=== PATIENT | female | born 1975 | race Caucasian/White ===

== ENCOUNTER 2017-12-19 09:16 | Emergency (ER) | payer BC, SELFPAY ==
[2017-12-19 09:30] VITALS: BP 136/68; PULSE 66; RESP 20; TEMP 37.1; O2SAT 95; BMI 43.0
--- NOTE | 2017-12-19 09:50 | PC.NURSE ---
c/o severe LLQ abdominal pain. Mild x last 2 weeks and suddenly worsened yesterday. No fever. Minimal diarrhea yesterday. No vomiting. No UTI symptoms. Hx of diverticulitis and feels that could be the cause. Worse with sitting. Very uncomfortable, guarding LLQ and standing leaned against exam table. Discussed symptoms, appearance and ORC Guidelines. Pt agrees that she needs to be in ER and knew I needed ER but due to having [employer], she was afraid they would deny her visit if she wasnt seen here first. Aware with the acute onset of worsening symptoms, she needs further abdominal pain evaluation in ER. Pt agrees. Report called to February. Room 10 available.
[2017-12-19 10:05] VITALS: BP 133/57; PULSE 63; RESP 18; TEMP 37; O2SAT 93; BMI 43.0
--- NOTE | 2017-12-19 10:37 | HMH.EDABDPAI ---
ED Disposition Clinical Impression: Diverticulitis Disposition: Home, Self-Care Condition on Discharge: Fair Instructions: Acute Abdominal Pain Additional Instructions: Use medicines as directed and followup with PCP for any worsening symptoms Prescriptions: Ciprofloxacin HCl [Cipro 500mg Tab] 500 mg PO BID 10 Days #20 tab metroNIDAZOLE [Flagyl] 500 mg PO BID 10 Days #20 tab Time of Disposition: 12:46 - Critical Care Critical Care Time: No Attestation: On 12/19/17, the high probability of a clinically significant, sudden or life threatening deterioration of the following system(s) required my full and direct attention, intervention and personal management. The time I documented below is in addition to time spent performing reported procedures but includes the following listed in this critical care notation. Medical Decision Making - Medical Records Medical records reviewed: Yes: I reviewed the patient's medical records. Vital Signs: 12/19/17 09:30 12/19/17 10:05 12/19/17 11:47 Temperature 98.7 F 98.6 F Temperature Source Temporal Artery Scan Oral Pulse Rate [Right Radial] 66 63 84 Respiratory Rate 20 18 16 Blood Pressure [Right Arm] 136/68 133/57 141/75 Blood Pressure Mean [Right Arm] 90 82 97 Blood Pressure Source [Right Arm] Automatic Cuff Automatic Cuff Automatic Cuff Blood Pressure Position [Right Arm] Sitting Sitting 02 Sat by Pulse Oximetry 95 93 L 98 Oxygen Delivery Method Room Air Room Air Room Air - Lab Data Lab results reviewed: Yes: I reviewed the patient's lab results. Lab Results 12/19/17 10:35: WBC 7.4, RBC 5.13, Hgb 15.1, Hct 46.2, MCV 90.0, MCH 29.5, MCHC 32.8, RDW 12.8, Plt Count 230, MPV 8.1, Neut % (Auto) 70.9, Lymph % (Auto) 20.5, Rabun % (Auto) 6.6, Eos % (Auto) 1.3, Baso % (Auto) 0.7, Neut # (Auto) 5.3, Lymph # (Auto) 1.5, Rabun # (Auto) 0.5, Eos # (Auto) 0.1, Baso # (Auto) 0.1 12/19/17 10:35: Sodium 139, Potassium 4.0, Chloride 104, Carbon Dioxide 27, Anion Gap 12.0, BUN 10, Creatinine 1.03 H, Estimated Creat Clear 50, Estimated GFR 58 L, Est GFR ( Amer) 70, Glucose 101, Calcium 8.6, Total Bilirubin 0.5, AST 24, ALT 44, Alkaline Phosphatase 72, Total Protein 7.8, Albumin 3.8, Globulin 4.0 H, Albumin/Globulin Ratio 1.0 L, Amylase 54, Lipase 169 Result diagrams: 12/19/17 10:35 12/19/17 10:35 Orders (Tests/Meds): ED MEDICATIONS Discontinued Medications Generic Name Dose Route Start Last Admin Trade Name Freq PRN Reason Stop Dose Admin Iopamidol 75 ml 12/19/17 12:26 12/19/17 12:27 [id number]; 75ml Vial IV 12/19/17 12:27 75 ml ONCE ONE Administration Morphine Sulfate 2 mg 12/19/17 11:56 12/19/17 12:03 Morphine 4mg/Ml Syringe IV 12/19/17 11:57 2 mg ONCE ONE Administration Ondansetron HCl 4 mg 12/19/17 11:56 12/19/17 12:11 Zofran 4mg/2ml Vial IM 12/19/17 11:57 Not Given ONCE ONE Ondansetron HCl 4 mg 12/19/17 11:57 12/19/17 12:03 Zofran 4mg/2ml Vial IV 12/19/17 11:58 4 mg ONCE ONE Administration Sodium Chloride 10 ml 12/19/17 12:26 12/19/17 12:27 Rad-Saline Flush 10ml Syringe IV 12/19/17 12:27 10 ml ONCE ONE Administration ORDERS Category Date Time Status CT abdomen pelvis w con Stat Cat Scan 12/19/17 11:49 Taken UA [Urinalysis and Microscopic] Stat Lab 12/19/17 10:26 Ordered - CT Data CT Scan: Abdomen, Pelvis Time Received: 12:[address] Reviewed: Yes: I have reviewed the patient's CT results, I have viewed the radiologist's interpretation Findings Narrative: Mild diverticulitis in sigmoid colon...no abscess and no perforations seen - Graham Inquiry Pt receiving controlled substance: No Graham was queried for this patient: No Abdominal Pain HPI - General Chief Complaint: Abdominal Pain Stated Complaint: side pain bloating thirsty Time Seen by Provider: 12/19/17 10:48 Mode of Arrival: Ambulatory Source of Information: Patient Limitations: No Limitations Description of
[2017-12-19 10:46] LABS: Basophils # 0.1 K/mm3 (0-0.2); Basophils % 0.7 % (0.1-2.0); Eosinophils # 0.1 K/mm3 (0.0-0.4); Eosinophils % 1.3 % (0.1-12.0); Hematocrit 46.2 % (37.0-47.0); Hemoglobin 15.1 g/dL (12.2-16.2); Lymphocytes # 1.5 K/mm3 (0.7-4.5); Lymphocytes % 20.5 K/mm3 (10-50); Mean Corpuscular HGB Conc 32.8 g/dL (31.8-35.4); Mean Corpuscular Hemoglobin 29.5 pg (27.0-31.2); Mean Platelet Volume 8.1 fl (7.4-10.4); Monocytes # 0.5 K/mm3 (0.1-1.0); Monocytes % 6.6 % (1.7-9.3); Neutrophils # 5.3 K/mm3 (1.8-7.8); Neutrophils % 70.9 % (37.0-80.0); Platelet Count 230 K/mm3 (142-424); Red Blood Count 5.13 M/mm3 (4.20-5.40); Red Cell Distribution Width 12.8 % (11.5-17.5); White Blood Count 7.4 K/mm3 (4.8-10.8)
[2017-12-19 10:57] LABS: Alanine Aminotransferase 44 U/L (12-78); Albumin Level 3.8 gm/dL (3.4-5.0); Alkaline Phosphatase 72 U/L (46-116); Amylase 54 U/L (25-125); Aspartate Amino Transferase 24 U/L (15-37); Bilirubin,Total 0.5 mg/dL (0.2-1.0); Blood Urea Nitrogen 10 mg/dL (7-18); Calcium 8.6 mg/dL (8.5-10.1); Carbon Dioxide 27 mmol/L (21.0-32.0); Chloride 104 mmol/L (98-107); Creatinine Clearance Estimated 50 mL/min (0-300); Creatinine,Serum 1.03 mg/dL (0.55-1.02); Estimated Glomerular Filt Rate 58 ml/min (>60); GFR (African American) 70 ML/MIN (>60); Glucose 101 mg/dL (74-106); Lipase 169 u/L (73-393); Sodium 139 mmol/L (136-145); Total Protein,Serum 7.8 gm/dL (6.4-8.2)
[2017-12-19 11:47] VITALS: BP 141/75; PULSE 84; RESP 16; O2SAT 98
--- NOTE | 2017-12-19 11:49 | CT_ITS ---
CT abdomen pelvis w con COMPARISON: CT scan abdomen pelvis 03/29/2016 HISTORY: Left lower quadrant pain, history of previous diverticulitis TECHNIQUE: Multiple axial scans obtained from hemidiaphragms the pelvic floor and were performed with IV contrast only. Sagittal coronal reformats were evaluated as well. FINDINGS: The lower lung quick are clear. There is diffuse fatty infiltration of the liver. There is been previous lap banding procedure of the stomach. Spleen and pancreas appear normal, there has been a previous cholecystectomy. The adrenal glands are normal. The kidneys are normal size and show symmetrical function both appearing normal. Small bowel is unremarkable. There is been previous appendectomy. There is moderate stool in ascending colon. There is diffuse Sharon date Roxana the lower descending and sigmoid colon. There is mild pericolonic fat stranding around the upper sigmoid colon at the site of previous episode of diverticulitis in March 2016. The uterus is normal size and in the midline. Urinary bladder appears normal. There is no free fluid in the pelvis appear there is a tiny umbilical hernia containing fat only. IMPRESSION: Mild diffuse diverticulosis of the lower descending and sigmoid colon with mild or early diverticulitis involving the upper sigmoid colon not as pronounced as the previous episode.
[2017-12-19 13:36] VITALS: BP 147/70; PULSE 87; RESP 16; TEMP 36.9; O2SAT 98
== END 2017-12-19 13:53 | disposition home or self-care (01) ==
LOC: UTC 09:22 → ER 09:54
PROVIDERS: Emergency Provider General Practice; Family Provider Family Medicine
DX: K57.92 Diverticulitis of intestine, part unspecified, without perforation or abscess without bleeding (principal); K57.32 Diverticulitis of large intestine without perforation or abscess without bleeding
CPT/HCPCS: 74177; 80053; 82150; 83690; 85025; 96374; 96375; 99284; J2405; Q9967

== ENCOUNTER → 2018-02-17 11:08 | Outpatient (CLI) | payer BC, SELFPAY ==
--- NOTE | 2018-02-17 11:14 | XR_ITS ---
XR foot LT min 3V COMPARISON: Left foot 12/04/2016 HISTORY: Left foot TECHNIQUE: AP lateral and oblique views FINDINGS: The tarsal bones metatarsals and phalanges appear intact with no evidence of recent or old fracture. The plantar arch is normal. There is a small spur of the calcaneus at the insertion of plantar tendon. The soft tissues are grossly normal. IMPRESSION: Tiny calcaneal spur otherwise negative left foot
== END ==
PROVIDERS: PCP Family Medicine; Visit Provider Family Medicine
DX: M79.672 Pain in left foot (principal)
CPT/HCPCS: 73630

== ENCOUNTER → 2018-05-10 14:40 | Outpatient (POV) | payer BC, SELFPAY | PROVIDERS: Family Provider Family Medicine; PCP Family Medicine; Visit Provider Nurse Practitioner Acute Care | DX: Z00.00 Encounter for general adult medical examination without abnormal findings (principal) ==

== ENCOUNTER → 2018-07-15 14:18 | Outpatient (CLI) | payer BC, SELFPAY ==
--- NOTE | 2018-07-15 14:23 | XR_ITS ---
XR chest 2V HISTORY: ITS.REASON: COUGH ORDERING PHYSICIAN: Giorgio Torres MD PATIENT AGE: 43 years COMPARISON: None FINDINGS: The cardiomediastinal silhouette and pulmonary vascularity are within normal limits. The lungs are clear without infiltrates, suspicious nodules, or pleural effusions. No acute bony abnormalities. There is a gastric lap band in position. A calcified granuloma is present overlying the anterior clear space inferiorly. IMPRESSION: Negative chest, no acute finding
== END ==
PROVIDERS: PCP Family Medicine; Visit Provider Family Medicine
DX: R05 Cough (principal)
CPT/HCPCS: 71046

== ENCOUNTER → 2018-07-23 10:43 | Outpatient (CLI) | payer BC, SELFPAY ==
--- NOTE | 2018-07-23 10:50 | US_ITS ---
US thyroid HISTORY: ITS.REASON: THYROMEGLY ORDERING PHYSICIAN: Giorgio Torres MD PATIENT AGE: 43 years Comparison: None FINDINGS: The right lobe is 4.3 x 1.6 x 1.5 cm with homogeneous echogenicity. No nodules. The left lobe is 4.4 x 1.3 x 1.4 cm. A 6 mm slightly hypoechoic well-circumscribed nodules present along the lower pole near the isthmus. The isthmus is slightly thickened at 5 mm. IMPRESSION: 1. Mildly enlarged thyroid gland. 2. 6 mm hypoechoic nodule in the lower pole at the isthmus the left which has a low level of suspicion for malignancy. Consider 6 month follow-up to confirm stability
== END ==
PROVIDERS: PCP Family Medicine; Visit Provider Family Medicine
DX: E01.0 Iodine-deficiency related diffuse (endemic) goiter (principal)
CPT/HCPCS: 76536

== ENCOUNTER → 2018-08-31 10:47 | Outpatient (POV) | payer BC, SELFPAY | PROVIDERS: Visit Provider Otolaryngology | DX: Z00.00 Encounter for general adult medical examination without abnormal findings (principal) ==

== ENCOUNTER → 2018-09-07 10:24 | Outpatient (POV) | payer BC, SELFPAY | PROVIDERS: Family Provider Family Medicine; Visit Provider Dermatology | DX: Z00.00 Encounter for general adult medical examination without abnormal findings (principal) ==

== ENCOUNTER → 2018-09-15 15:12 | Outpatient (CLI) | payer BC, SELFPAY ==
--- NOTE | 2018-09-15 15:16 | CT_ITS ---
CT sinus wo con CLINICAL INDICATION: ITS.REASON: BILAT-ABN TYMPANIC MEMBRANE,ABN AUDITORY PERCEPTION,ACUTE ORDERING PHYSICIAN: Minerva Queen MD PATIENT AGE: 43 years COMPARISON: None TECHNIQUE:Axial images obtained with sagittal and coronal reformats. All CT scans at the facility use one or more dose reduction, viz: automated exposure control, ma/kV adjustment per patient size (including targeted exams where dose is matched to indication, i.e. head), or iterative reconstruction technique. FINDINGS: The frontal sinuses are unremarkable. There is minor mucosal thickening of the right maxillary sinus inferiorly measuring up to 2 mm. There is mild mucosal thickening of the right ethmoids centrally and inferiorly. There is moderate mucosal thickening of the sphenoid sinus both right and left aspect measuring up to 8 mm in thickness. There is a question of a small air-fluid level in the right aspect of the sinus. No maxillary sinus air-fluid level. The mastoid sinuses are unremarkable. The middle ears do not appear opacified. The orbits and temporomandibular joints have an unremarkable appearance. There is mild rightward nasal septal deviation. The ostiomeatal complexes are patent. Scattered small lymph nodes present in the neck. IMPRESSION: 1. Mild paranasal sinus disease greatest in the sphenoid sinus region. 2. No mastoid effusion or middle ear opacification. 3. Right nasal septal deviation
== END ==
PROVIDERS: PCP Otolaryngology; Visit Provider Otolaryngology
DX: H73.93 Unspecified disorder of tympanic membrane, bilateral (principal); H93.293 Other abnormal auditory perceptions, bilateral; J01.01 Acute recurrent maxillary sinusitis
CPT/HCPCS: 70486

== ENCOUNTER → 2018-09-30 14:24 | Outpatient (CLI) | payer BC, SELFPAY ==
--- NOTE | 2018-09-30 14:28 | US_ITS ---
US transvaginal HISTORY: ITS.REASON: US T/V- Dyspareunia ORDERING PHYSICIAN: Fredrick Yip MD PATIENT AGE: 43 years Comparison: None FINDINGS: The uterus is prominent measuring 10.3 x 4.7 x 5.9 cm. Combined endometrial thickness is 6 mm. Nabothian cysts are noted. The right ovary is 3.4 x 3.3 cm. The left ovary is 3 x 2.6 cm. No dominant cyst. No cul-de-sac fluid. IMPRESSION: Bulky uterus otherwise negative pelvic ultrasound
== END ==
PROVIDERS: PCP Family Medicine; Visit Provider Nurse Practitioner Obstetrics & Gynecology
DX: N94.10 Unspecified dyspareunia (principal)
CPT/HCPCS: 76830

== ENCOUNTER → 2018-10-19 09:46 | Outpatient (POV) | payer BC, SELFPAY | PROVIDERS: Visit Provider Otolaryngology | DX: Z00.00 Encounter for general adult medical examination without abnormal findings (principal) ==

== ENCOUNTER → 2019-03-28 14:32 | Outpatient (CLI) | payer BC, SELFPAY ==
--- NOTE | 2019-03-28 14:42 | XR_ITS ---
XR foot LT min 3V HISTORY: ITS.REASON: LT FOOT PAIN ORDERING PHYSICIAN: Giorgio Torres MD PATIENT AGE: 43 years COMPARISON: None FINDINGS: No fracture or dislocation. No lytic or blastic change. There is normal mineralization.. The joint spaces are well-preserved. No significant degenerative/arthritic changes. No erosive changes evident. IMPRESSION: Negative, no acute finding
== END ==
PROVIDERS: PCP Family Medicine; Visit Provider Family Medicine
DX: M79.672 Pain in left foot (principal)
CPT/HCPCS: 73630

== ENCOUNTER → 2019-04-05 12:47 | Outpatient (CLI) | payer BC, SELFPAY ==
--- NOTE | 2019-04-05 12:49 | US_ITS ---
US extremity LT limited HISTORY: ITS.REASON: Foreign Body of left Foot ORDERING PHYSICIAN: Rashida Meraz DPM PATIENT AGE: 43 years COMPARISON: None FINDINGS: Ultrasound performed of the left heel region in the area of pain and swelling. No sonographically detected performed body apparent. Small amount fluid is present in the subcutaneous region. IMPRESSION: No foreign body detected by ultrasound
== END ==
PROVIDERS: PCP Family Medicine; Visit Provider Podiatrist
DX: M79.672 Pain in left foot (principal)
CPT/HCPCS: 76882

== ENCOUNTER → 2020-01-10 09:58 | Outpatient (POV) | payer BC, SELFPAY | PROVIDERS: PCP Dermatology; Visit Provider Dermatology | DX: Z00.00 Encounter for general adult medical examination without abnormal findings (principal) ==

== ENCOUNTER → 2020-03-01 09:59 | Outpatient (CLI) | payer BC, SELFPAY ==
--- NOTE | 2020-03-01 10:03 | XR_ITS ---
PROCEDURE: XR LUMBAR SPINE MIN 4V CLINICAL INDICATION: RT SCIATICA Low back pain COMPARISON: No exams were available for comparison FINDINGS: Normal alignment. No acute fracture or dislocation. The disc spaces are well preserved. Minimal endplate osteophytes are present. There is some sclerosis of the left SI joint. No lytic or blastic change IMPRESSION: Minimal degenerative changes with sclerosis of the left SI joint Dictated by: Aneesh Cadena MD 03/01/2020 12:24 Electronically signed by Aneesh Cadena MD in [place] 03/01/2020 12:24
== END ==
PROVIDERS: PCP Family Medicine; Visit Provider Family Medicine
DX: M54.31 Sciatica, right side (principal)
CPT/HCPCS: 72110

== ENCOUNTER → 2020-12-11 08:09 | Outpatient (CLI) | payer BC, SELFPAY ==
[2020-12-11 09:23] LABS: Hematocrit 41.9 % (37.0-47.0); Hemoglobin 13.7 g/dL (12.2-16.2); Mean Corpuscular HGB Conc 32.7 g/dL (31.8-35.4); Mean Corpuscular Hemoglobin 30.3 pg (27.0-31.2); Mean Corpuscular Volume 92.8 fl (81-99); Platelet Count 253 K/mm3 (142-424); Red Blood Count 4.52 M/mm3 (4.20-5.40); Red Cell Distribution Width 12.9 % (11.5-17.5); White Blood Count 5.6 K/mm3 (4.8-10.8)
[2020-12-11 09:26] LABS: Hemoglobin A1C 5.1 % (4.0-6.0)
[2020-12-11 09:51] LABS: Alanine Aminotransferase 17 U/L (12-78); Albumin Level 4.4 g/dl (3.5-5.0); Albumin/Globulin Ratio 1.6 (1.1-1.8); Alkaline Phosphatase 71 U/L (38-126); Anion Gap 13.2 mEq/L (5-15); Aspartate Amino Transferase 26 U/L (14-36); Bilirubin,Total 0.6 mg/dl (0.2-1.3); Blood Urea Nitrogen 16 mg/dl (7-17); Calcium 9.8 mg/dl (8.4-10.2); Carbon Dioxide 28 mmol/L (22.0-30.0); Chloride 100 mmol/L (98-107); Chol/HDL Ratio 4.3 (1-3.5); Cholesterol 187 mg/dl (140-200); Estimated Glomerular Filt Rate 67 ml/min (>60); GFR (African American) 81 ML/MIN (>60); Globulin 2.8 g/dL (1.3-3.2); Glucose 88 mg/dl (74-100); HDL Cholesterol 43 mg/dl (40-60); Iron 70 ug/dL (37-170); Magnesium 1.9 mg/dl (1.6-2.3); Phosphorous 4.3 mg/dl (2.5-4.5); Potassium 4.2 mmoL/L (3.5-5.1); Sodium 137 mmol/L (136-145); Total Protein,Serum 7.2 g/dl (6.3-8.2); Triglycerides 95 mg/dl (30-150); VLDL Cholesterol 19 mg/dL (0-40)
[2020-12-11 10:07] LABS: 25-OH Vitamin D, Total 84.7 ng/mL (30-100)
[2020-12-11 10:59] LABS: Folate 6.55 ng/mL
[2020-12-11 11:47] LABS: Thyroid Stimulating Hormone 2.71 uIU/mL (0.465-4.68)
[2020-12-11 11:51] LABS: Ferritin 24.8 ng/ml (6.24-137)
[2020-12-12 15:42] LABS: Prealbumin 20 mg/dL (12-34)
[2020-12-15 23:42] LABS: Vitamin A 32.8 ug/dL (20.1-62.0); Vitamin B1 84.8 nmol/L (66.5-200.0)
[2020-12-16 16:36] LABS: Vitamin E Alpha Tocopherol 10.7 mg/L (7.0-25.1)
[2020-12-16 22:01] LABS: Vitamin E Gamma Tocopherol 0.7 mg/L (0.5-5.5)
[2020-12-19 20:03] LABS: Methylmalonic Acid 257 nmol/L (0-378)
== END ==
PROVIDERS: Visit Provider Physician Assistant Medical
DX: E66.01 Morbid (severe) obesity due to excess calories (principal); Z98.890 Other specified postprocedural states
CPT/HCPCS: 36415; 80053; 80061; 82131; 82306; 82728; 82746; 83036; 83540; 83735; 83970; 84100; 84134; 84425; 84443; 84446; 84590; 85014; 85018; 85048; 85049

== ENCOUNTER → 2021-08-23 10:17 | Outpatient (CLI) | payer BC, SELFPAY ==
--- NOTE | 2021-08-23 10:21 | XR_ITS ---
PROCEDURE: XR HIP RT 2-3V W/PELVIS CLINICAL INDICATION: RT HIP PAIN COMPARISON: No exams were available for comparison FINDINGS: No fracture or dislocation is evident. There is minor asymmetrical joint space narrowing. There are no soft tissue calcifications. SI joints appear normal. IMPRESSION: Minor osteoarthritic change right hip Dictated by: Dr. Eleuterio Wilkinson MD 08/23/2021 10:30 Dr. Eleuterio Wilkinson MD in [facility] 08/23/2021 10:30
== END ==
PROVIDERS: PCP Family Medicine; Visit Provider Family Medicine
DX: M25.551 Pain in right hip (principal)
CPT/HCPCS: 73502

== ENCOUNTER → 2022-10-30 11:22 | Outpatient (CLI) | payer BC, SELFPAY ==
--- NOTE | 2022-10-30 11:26 | XR_ITS ---
FINAL REPORT CLINICAL HISTORY: LT WRIST PAIN FINDINGS: LEFT WRIST Three views demonstrate no acute fracture or dislocation. The visualized joint spaces are normally aligned. The joint spaces are intact. The soft tissues are unremarkable. IMPRESSION: No acute bony abnormality. Reviewed, Interpreted and Dictated by Ortega Parker III, MD Transcribed by Jacqueline Chirinos Authenticated and [facility]
== END ==
PROVIDERS: PCP Physician Assistant; Visit Provider Physician Assistant
DX: M25.532 Pain in left wrist (principal)
CPT/HCPCS: 73110

== ENCOUNTER → 2022-11-18 09:56 | Outpatient (CLI) | payer BC, SELFPAY ==
--- NOTE | 2022-11-18 10:01 | XR_ITS ---
FINAL REPORT TECHNIQUE: Two views CLINICAL HISTORY: SUBACUTE COUGH COMPARISON: July 15, 2018 FINDINGS: No acute pulmonary density is present. Mediastinal contour is normal. Heart size is stable. IMPRESSION: Stable chest exam without acute disease Reviewed, Interpreted and Dictated by Jyotsna Jeffries MD Transcribed by Jacqueline Chirinos Authenticated and [facility]
== END ==
PROVIDERS: PCP Family Medicine; Visit Provider Family Medicine
DX: R05.2 Subacute cough (principal)
CPT/HCPCS: 71046

== ENCOUNTER → 2022-12-05 11:47 | Outpatient (CLI) | payer BC, SELFPAY | PROVIDERS: PCP Family Medicine; Visit Provider Family Medicine | DX: G47.10 Hypersomnia, unspecified (principal); R06.83 Snoring; E66.01 Morbid (severe) obesity due to excess calories; G47.33 Obstructive sleep apnea (adult) (pediatric) | CPT/HCPCS: G0399 ==

== ENCOUNTER 2022-12-08 11:00 | Outpatient (RCR) | payer BC, SELFPAY | END 2022-12-08 11:05 | disposition home or self-care (01) | LOC: OT 11:00 | PROVIDERS: PCP Family Medicine; Visit Provider Family Medicine | DX: M25.532 Pain in left wrist (principal) | CPT/HCPCS: 97010; 97014; 97035; 97110; 97140; 97166; 97530; G0283 ==

== ENCOUNTER → 2023-10-12 08:23 | Outpatient (CLI) | payer BC, SELFPAY ==
--- NOTE | 2023-10-12 08:29 | MM_ITS ---
PROCEDURE INFORMATION: Exam: MG Bilateral Screening 3D Mammography Exam date and time: 10/12/2023 8:26 AM Age: 48 years old Clinical indication: Screening examination TECHNIQUE: Imaging protocol: Bilateral Screening tomosynthesis and 2D mammography including computer-aided detection (CAD) when performed. COMPARISON: No relevant prior studies available. Baseline FINDINGS: MAMMOGRAPHY: Breast composition: There are scattered areas of fibroglandular density. Mass: Partially circumscribed 0.6 cm mass in the posterior left upper inner quadrant Architectural distortion: None. Calcifications: No suspicious calcifications. Asymmetric density: None. Skin thickening: None. Axillary adenopathy: None. IMPRESSION: Patient to be recalled for spot compression views of the left breast in the CC and MLO projections, a full 90 degree lateral view, and left breast ultrasound for further evaluation of a left breast mass. ASSESSMENT: BI-RADS Category 0: Incomplete- Need Additional Imaging Evaluation and/or Prior Mammograms for Comparison
== END ==
PROVIDERS: PCP Family Medicine; Visit Provider Nurse Practitioner Obstetrics & Gynecology
DX: Z12.31 Encounter for screening mammogram for malignant neoplasm of breast (principal)
CPT/HCPCS: 77063; 77067

== ENCOUNTER → 2023-10-29 14:55 | Outpatient (CLI) | payer BC, SELFPAY ==
--- NOTE | 2023-10-29 14:59 | MM_ITS ---
PROCEDURE INFORMATION: Exam: US Left Breast, Complete MG Left Diagnostic Breast Tomosynthesis Exam date and time: 10/29/2023 2:45 PM Age: 48 years old Clinical indication: Patient recalled on the basis of a screening mammogram for further evaluation; Left breast; mass TECHNIQUE: Imaging protocol: Complete ultrasound of all four quadrants of the left breast and the retroareolar regions, including ultrasound of the axilla when performed. Left Diagnostic tomosynthesis and 2D mammography including computer-aided detection (CAD) when performed. Unilateral or bilateral exam. COMPARISON: MG MM DIG SCREENING MAMM BI W/CAD 10/12/2023 8:26 AM FINDINGS: MAMMOGRAPHY: Digital diagnostic spot compression views of the left medial breast demonstrates the suggestion of a persistent ovoid 0.7 cm mass best seen in the craniocaudal projection. ULTRASOUND: Sonographic images of the left breast including the retroareolar region, all 4 quadrants and the axilla demonstrates a hypoechoic ovoid mass in the 8 o'clock axis 9 cm from the nipple measuring 0.6 x 0.3 x 0.6 cm. The finding likely represents a debris-filled cyst and appears to most closely correspond to the mass on mammography. Additional hypoechoic well-circumscribed ovoid mass in the left 2 o'clock axis 10 cm from the is also likely benign in etiology and measures 1.0 x 0.6 x 0.9 cm in dimension. No architectural distortion or acoustical shadowing. No skin thickening or axillary adenopathy. IMPRESSION: Two probably benign hypoechoic masses in the left breast, the lower inner quadrant mass most closely corresponds to the slight persistent nodularity on mammography. The upper outer quadrant mass on sonography is not well seen on mammography. A six-month follow-up diagnostic left mammogram and targeted left breast ultrasound are recommended to ensure stability over time ASSESSMENT: BI-RADS Category 3: Probably benign
== END ==
PROVIDERS: PCP Family Medicine; Visit Provider Obstetrics & Gynecology
DX: R92.8 Other abnormal and inconclusive findings on diagnostic imaging of breast (principal)
CPT/HCPCS: 76641; 77061; 77065; G0279

== ENCOUNTER 2024-01-01 10:38 | Outpatient (CLI) | payer BC, SELFPAY ==
[2024-01-01 10:43] LABS: Coronavirus 19, PCR Not Detected (NotDetected); Influenza A, PCR Not Detected (NotDetected); Influenza B, PCR Not Detected (NotDetected)
== END 2024-01-01 23:59 ==
LOC: LAB 10:39
PROVIDERS: PCP Family Medicine; Visit Provider Physician Assistant
DX: J06.9 Acute upper respiratory infection, unspecified (principal)
CPT/HCPCS: 87636

== ENCOUNTER 2024-03-17 11:18 | Outpatient (CLI) | payer BC, SELFPAY ==
--- NOTE | 2024-03-17 | XR_ITS ---
FINAL REPORT CLINICAL HISTORY: LT WRIST PAIN fall last year FINDINGS: LEFT WRIST Three views show no evidence of an acute, displaced fracture or dislocation of the visualized bony architecture. The joint spaces appear normal. IMPRESSION: Unremarkable exam. Reviewed, Interpreted and Dictated by Jyotsna Jeffries MD Transcribed by Lily Chaudhary Authenticated and [facility]
== END 2024-03-17 23:59 | disposition home or self-care (01) ==
LOC: RAD 11:19
PROVIDERS: PCP Family Medicine; Visit Provider Family Medicine
DX: M25.532 Pain in left wrist (principal)
CPT/HCPCS: 73110

== ENCOUNTER 2024-05-17 13:51 | Outpatient (CLI) | payer BC, SELFPAY ==
--- NOTE | 2024-05-17 13:52 | MM_ITS ---
PROCEDURE INFORMATION: Exam: US Left Breast, Complete MG Left Diagnostic Breast Tomosynthesis Exam date and time: 05/17/2024 2:18 PM Age: 48 years old Clinical indication: Short-term radiographic followup; Left breast: masses TECHNIQUE: Imaging protocol: Complete ultrasound of all four quadrants of the left breast and the retroareolar regions, including ultrasound of the axilla when performed. Left Diagnostic tomosynthesis and 2D mammography including computer-aided detection (CAD) when performed. Unilateral or bilateral exam. COMPARISON: US BREAST LT COMPLETE 10/29/2023 3:05 PM FINDINGS: MAMMOGRAPHY: Breast composition: There are scattered areas of fibroglandular density. Breast mammogram findings: There is no stellate mass, architectural distortion or suspicious microcalcifications to suggest malignancy. Stable probably benign 0.7 cm mass middle third of the left medial breast. No skin thickening or axillary adenopathy. ULTRASOUND: Breast ultrasound findings: Sonographic images of the left breast including the retroareolar region, all 4 quadrants and the axilla demonstrates a stable hypoechoic ovoid mass in the 2 o'clock axis 10 cm from the nipple measuring 1.0 x 0.5 x 0.9 cm. Stable ovoid hypoechoic mass in the 8 o'clock axis 6 cm from the nipple measuring 0.7 x 0.3 x 0.6 cm. New similar-appearing hypoechoic ovoid well-circumscribed mass in the left 9 o'clock retroareolar region measuring 0.6 x 0.7 x 0.3 cm. No architectural distortion or acoustical shadowing. No skin thickening or axillary adenopathy. IMPRESSION: 1. Stable sonographically detected hypoechoic masses in the 2 and 8 o'clock axes compared to prior sonogram dated 10/29/2023. New probably benign similar appearing mass in the left 9 o'clock retroareolar region also only well seen on sonography. 2. Stable probably benign subcentimeter mass detected mammographically in the middle third of the left medial breast possibly correlating with the 8 o'clock axis mass on sonography. This is stable compared to prior mammogram dated 10/29/2023 A six-month follow-up diagnostic bilateral mammogram and targeted left breast ultrasound are recommended to ensure ongoing stability ASSESSMENT: BI-RADS Category 3: Probably benign.
== END 2024-05-17 23:59 | disposition home or self-care (01) ==
LOC: RAD 13:52
PROVIDERS: PCP Family Medicine; Visit Provider Obstetrics & Gynecology
DX: R92.8 Other abnormal and inconclusive findings on diagnostic imaging of breast (principal)
CPT/HCPCS: 76641; 77061; 77065; G0279

== ENCOUNTER 2024-11-18 12:38 | Outpatient (CLI) | payer BC, SELFPAY ==
--- NOTE | 2024-11-18 12:38 | MM_ITS ---
PROCEDURE INFORMATION: Exam: US Left Breast, Complete MG Bilateral Diagnostic Breast Tomosynthesis Exam date and time: 11/18/2024 1:01 PM Age: 49 years old Clinical indication: Six-month follow-up for probably benign mammographic mass mass in the left upper inner quadrant, initiated 10/12/2023 and probably benign sonographic masses on the left at 2 and 11 o'clock initiated 10/29/2023 - as well as on the left at 9 o'clock sonographically initiated 05/17/2024. TECHNIQUE: Imaging protocol: Complete ultrasound of all four quadrants of the left breast and the retroareolar regions, including ultrasound of the axilla when performed. Bilateral Diagnostic tomosynthesis and 2D mammography including computer-aided detection (CAD) when performed. Unilateral or bilateral exam. Spot compression and on the left. COMPARISON: US BREAST LT COMPLETE 05/17/2024 2:18 PM US BREAST LT COMPLETE 05/17/2024 2:18 PM MG MM DIG SCREENING MAMM BI W/CAD 10/12/2023 8:26 AM MG MM DIG MAMM DX UNILAT LT CAD 10/29/2023 2:45 PM MG MM DIG MAMM DX UNILAT LT CAD 05/17/2024 2:00 PM FINDINGS: MAMMOGRAPHY: Breast mammogram findings: Breast composition: There are scattered areas of fibroglandular density. Mass: Stable oval subcentimeter masses in the left upper outer quadrant posteriorly and left upper inner quadrant posteriorly, CC image [id number] frame 25 and MLO image [id number] for frame 21, and CC image [id number] frame 17 and MLO image [id number] frame 21 Architectural distortion: None. Calcifications: No suspicious calcifications. Asymmetric density: None. Skin thickening: None. Axillary adenopathy: None. ULTRASOUND: Breast ultrasound findings: Left sonography, all 4 quadrants, retroareolar and axilla. At 2 o'clock 10 cm from the nipple, oval, gently lobulated, hypoechoic avascular mass measuring 0.8 x 0.9 x 0.6 cm which measure 1.0 x 0.6 x 0.9 cm on 10/29/2023. At 8 o'clock 6 cm from the nipple, oval hypoechoic avascular mass measuring 0.6 x 0.3 x 0.6 cm which measured 0.6 x 0.3 x 0.6 cm on 10/29/2023. Minimally prominent retroareolar ducts with no related debris, with no finding demonstrated at 9 o'clock retroareolar.. Sonographically unremarkable axillary lymph node. IMPRESSION: Stable probably benign left mammographic and sonographic masses since September and October 2023, continued six-month follow-up left diagnostic mammography unless sonography unless otherwise clinically indicated. ASSESSMENT: BI-RADS Category 3: Probably benign.
== END 2024-11-18 23:59 | disposition home or self-care (01) ==
LOC: RAD 12:38
PROVIDERS: PCP Family Medicine; Visit Provider Obstetrics & Gynecology
DX: R92.8 Other abnormal and inconclusive findings on diagnostic imaging of breast (principal); N63.22 Unspecified lump in the left breast, upper inner quadrant
CPT/HCPCS: 76641; 77062; 77066; G0279

== ENCOUNTER 2025-06-06 10:09 | Outpatient (CLI) | payer BC, SELFPAY ==
--- OUTSIDE RECORDS SUMMARY | 2025-06-06 10:12 | XMS_ITS | Clinical Summary ---
Author Organization Healthcare Address [address] [place] [address] Care Team Providers Care Insurance Follow Up Representative Name Role Phone Giorgio Torres MD Primary Care Provider [phone] Allergies No known active allergies Medications celecoxib (CeleBREX) 100 MG capsule Take 1 capsule (100 mg) by mouth 1 (one) time each day. 2 Active Maximum D3 325 MCG (42565 UT) capsule 3 Active fluticasone (Flonase) 50 MCG/ACT nasal spray USE 1 SPRAY(S) IN EACH NOSTRIL ONCE DAILY 3 Active hydrOXYzine HCl (Atarax) 25 MG tablet Take 1 tablet (25 mg) by mouth 3 (three) times a day if needed. 3 Active montelukast (Singulair) 10 MG tablet Take 1 tablet (10 mg) by mouth 1 (one) time each day. 3 Active QUEtiapine (SEROquel) 100 MG tablet 3 Active Wegovy 2.4 MG/0.75ML solution auto-injector INJECT 3/4 (THREE-FOURTHS ) ML SUBCUTANEOUSLY ONCE A WEEK 3 Active sertraline (Zoloft) 100 MG tablet TAKE 2 TABLETS BY MOUTH ONCE DAILY FOR 90 DAYS 3 Active Active Problems No known active problems Family History Medical History Relation Name Comments Diabetes Father Heart disease Father Diabetes Mother Heart disease Mother Relation Name Status Comments Father Alive Mother Alive Social History Tobacco Use Types Packs/Day Years Used Date Smoking Tobacco: Never Passive Smoke Exposure: Never Smokeless Tobacco: Never Alcohol Use Standard Drinks/Week Comments Never 0 (1 standard drink = 0.6 oz pur e alcohol) Comments Unknown Sex and Gender Information Value Date Recorded Sex Assigned at Not on file Legal Sex Female 9:17 AM EDT Gender Identity Not on file Sexual Orientation Not on file Last Filed Vital Signs Vital Sign Reading Time Taken Comments Blood Pressure 119/79 06/05/2023 1:55 PM EDT Pulse 78 06/05/2023 1:55 PM EDT Temperature 35.6 C (96 F) 06/05/2023 1:55 PM EDT Respiratory Rate - - Oxygen Saturation 97% 06/05/2023 1:55 PM EDT Inhaled Oxygen Concentration - - Weight 87 kg (191 lb 12.8 oz) 06/05/2023 1:55 PM EDT Height 152.4 cm (5') 06/05/2023 1:55 PM EDT Body Mass Index 37.46 06/05/2023 1:55 PM EDT Plan of Treatment Health Maintenance Due Date Last Done Comments [facility]-Depression Screening 1973 [facility]-Infant/Child/Adol SDOH Screenings 1973 [facility]- SDOH Screenings 1991 [facility]-Adult SDOH Screenings 1991 [facility]-DTaP,Tdap,and Td Vaccines (1 - Tdap) 1992 [facility]-Hepatitis B Vaccines (1 of 3 - 19+ 3-dose series) 1992 [facility]-Pap Smear 1994 [facility]-Cervical Cancer Screening 2003 [facility]-HPV/Cotest 2003 CT Colonography 2018 Colonoscopy 2018 FIT-DNA 2018 FIT 2018 FOBT 2018 Sigmoidoscopy 2018 [facility]-Colorectal Cancer Screening 2018 [facility]-Pneumococcal Vaccine: 50+ Years (1 of 1 - PCV) 2023 [facility]-Zoster Vaccines (1 of 2) 2023 [id number] Vaccine (2 - season) 2024 02/20/2021 [facility]-Influenza Vaccine (#1) 07/17/202510/01, 10/29/2021, 09/19/2019, Additional history exists HPV Vaccines Aged Out No longer eligi ble based on patient's age to complete this topic [facility]-HIB Vaccines Aged Out No longer e ligible based on patient's age to complete this topic [facility]-Hepatitis A Vaccines Aged Out No longer eligible based on patient's age to complete this topic [facility]-IPV Vaccines Aged Out No longer e ligible based on patient's age to complete this topic [facility]-Rotavirus Vaccines Aged Out No lo nger eligible based on patient's age to complete this topic Insurance ANTHEM Care Teams Insurance Follow Up Representative Relationship Specialty Start Date End Date Giorgio Torres MD [address] [facility] [place] [address] [address] PCP - General 04/16/23
--- NOTE | 2025-06-06 10:30 | MM_ITS ---
PROCEDURE INFORMATION: Exam: MG Left Diagnostic Breast Tomosynthesis Exam date and time: 06/06/2025 10:10 AM Age: 49 years old Clinical indication: Left breast follow-up. TECHNIQUE: Imaging protocol: Left Diagnostic tomosynthesis and 2D mammography including computer-aided detection (CAD) when performed. Unilateral or bilateral exam. COMPARISON: 1. MG MM DIG MAMM BI DX W/CAD 11/18/2024 12:33 PM 2. MG MM DIG MAMM DX UNILAT LT CAD 05/17/2024 2:00 PM FINDINGS: MAMMOGRAPHY: Breast composition: There are scattered areas of fibroglandular density. Breast mammogram findings: In the left upper outer breast, there are multiple similar subcentimeter ovoid nodules, the largest measuring 1 cm. There is a stable low-density oval mass in the medial aspect of the left breast that measures 0.6 cm, this has been stable since 10/29/2023. There is no dominant or suspicious new finding. There is no evidence of architectural distortion or suspicious calcifications. IMPRESSION: Masses in the left breast upper outer quadrant as well as the low-density ovoid mass in the medial aspect of the left breast are stable mammographically since 10/29/2023. Follow-up left breast diagnostic mammogram in 6 months is recommended to establish stability over time. ASSESSMENT: BI-RADS Category 3: Probably benign.
== END 2025-06-06 23:59 | disposition home or self-care (01) ==
LOC: RAD 10:09
PROVIDERS: PCP Family Medicine; Visit Provider Obstetrics & Gynecology
DX: N63.21 Unspecified lump in the left breast, upper outer quadrant (principal); R92.8 Other abnormal and inconclusive findings on diagnostic imaging of breast
CPT/HCPCS: 77061; 77065; G0279